=== PATIENT | female | born 1995 | race Caucasian/White ===

== ENCOUNTER → 2018-01-01 | Emergency (ER) | payer OTHER ==
[~2018-01-01] VITALS: Ht 154.9 cm; Wt 47.6 kg
[~2018-01-01] MED LIST: FOLIC ACID0.4 MG; PNV-FERROUS FU1 EACH
== END | disposition home or self-care (01) ==
LOC: ER 10:15
DX: O20.0 Threatened abortion (principal); Z34.81 Encounter for supervision of other normal pregnancy, first trimester

== ENCOUNTER → 2018-01-07 | Emergency (ER) | payer OTHER ==
[~2018-01-07] VITALS: Ht 154.9 cm; Wt 47.6 kg
== END | disposition left against medical advice (07) ==
LOC: ER 10:58
DX: Z53.20 Procedure and treatment not carried out because of patient's decision for unspecified reasons (principal)

== ENCOUNTER 2018-01-09 12:21 | Emergency (ER) | payer OTHER ==
[~2018-01-09] VITALS: Ht 154.9 cm; Wt 49.0 kg
== END 2018-01-09 20:09 | disposition home or self-care (01) ==
LOC: ER 12:21
DX: O21.0 Mild hyperemesis gravidarum (principal); O98.511 Other viral diseases complicating pregnancy, first trimester; B34.9 Viral infection, unspecified; Z34.81 Encounter for supervision of other normal pregnancy, first trimester

== ENCOUNTER 2018-03-27 18:59 | Emergency (ER) | payer OTHER ==
[~2018-03-27] VITALS: Ht 162.6 cm; Wt 59.0 kg
== END 2018-03-27 20:07 | disposition home or self-care (01) ==
LOC: ER 18:59
DX: J06.9 Acute upper respiratory infection, unspecified (principal)

== ENCOUNTER 2018-06-26 20:19 | Outpatient (CLI) | payer OTHER | END 2018-06-26 21:21 | disposition home or self-care (01) | LOC: OBS/DEL 20:19 | DX: O26.893 Other specified pregnancy related conditions, third trimester (principal); R10.2 Pelvic and perineal pain; Z34.83 Encounter for supervision of other normal pregnancy, third trimester ==

== ENCOUNTER 2018-07-23 16:20 | Inpatient (IN) | payer OTHER ==
[~2018-07-23] VITALS: Ht 154.9 cm; Wt 151.0 kg
== END 2018-07-26 09:55 | disposition home or self-care (01) | DRG 833 ==
LOC: LDR 16:20 → OB/GYN 07-25 15:58
PROC: 4A1HXCZ Monitoring of Products of Conception, Cardiac Rate, External Approach (ICD-10-PCS; principal; 2018-07-23)
PROC: BY4FZZZ Ultrasonography of Third Trimester, Single Fetus (ICD-10-PCS; 2018-07-23)
PROC: BU4CZZZ Ultrasonography of Uterus and Ovaries (ICD-10-PCS; 2018-07-23)
DX: O60.03 Preterm labor without delivery, third trimester (principal); O34.211 Maternal care for low transverse scar from previous cesarean delivery; Z34.03 Encounter for supervision of normal first pregnancy, third trimester

== ENCOUNTER 2018-08-09 16:26 | Inpatient (IN) | payer OTHER ==
[~2018-08-09] VITALS: Ht 154.9 cm; Wt 71.7 kg
== END 2018-08-12 10:42 | disposition home or self-care (01) | DRG 788 ==
LOC: LDR 16:26 → OB/GYN 20:39 → RECOVERY 08-19 17:00
PROVIDERS: Obstetrics & Gynecology
PROC: 4A1HXCZ Monitoring of Products of Conception, Cardiac Rate, External Approach (ICD-10-PCS; 2018-08-09)
PROC: 10D00Z1 Extraction of Products of Conception, Low, Open Approach (ICD-10-PCS; principal; 2018-08-09 16:00)
DX: O82 Encounter for cesarean delivery without indication (principal); Z3A.37 37 weeks gestation of pregnancy; Z37.0 Single live birth

== ENCOUNTER 2021-06-22 10:07 | Emergency (ER) | payer OTHER ==
[~2021-06-22] VITALS: Ht 205.7 cm; Wt 54.9 kg
[2021-06-22] MEDS ORDERED: FOLIC ACID0.4 MG PO (10:19)
== END 2021-06-22 17:17 ==
LOC: ER 10:07
DX: O20.8 Other hemorrhage in early pregnancy (principal)

== ENCOUNTER → 2021-06-24 08:11 | Outpatient (CLI) | payer OTHER ==
[~2021-06-24 08:11] MED LIST changes: +FOLIC ACID0.4 MG PO
== END | disposition home or self-care (01) ==
LOC: LAB 08:11
PROVIDERS: ATTEND General Practice
DX: O00.00 Abdominal pregnancy without intrauterine pregnancy (principal)

== ENCOUNTER 2021-08-01 17:06 | Emergency (ER) | payer OTHER ==
[~2021-08-01] VITALS: Ht 154.9 cm; Wt 58.5 kg
== END 2021-08-01 21:33 | disposition home or self-care (01) ==
LOC: ER 17:06
DX: O21.9 Vomiting of pregnancy, unspecified (principal); R10.2 Pelvic and perineal pain; Z3A.00 Weeks of gestation of pregnancy not specified

== ENCOUNTER 2021-11-16 11:14 | Emergency (ER) | payer OTHER ==
[~2021-11-16] VITALS: Ht 154.9 cm; Wt 55.3 kg
== END 2021-11-16 17:33 | disposition home or self-care (01) ==
LOC: ER 11:14
DX: O21.0 Mild hyperemesis gravidarum (principal); Z3A.00 Weeks of gestation of pregnancy not specified

== ENCOUNTER 2022-06-07 11:35 | Outpatient (CLI) | payer OTHER | END 2022-06-07 19:35 | disposition home or self-care (01) | LOC: OBS/DEL 11:35 | PROVIDERS: ATTEND Specialist | DX: O26.893 Other specified pregnancy related conditions, third trimester (principal); Z3A.34 34 weeks gestation of pregnancy ==

== ENCOUNTER 2022-06-14 10:03 | Inpatient (IN) | payer OTHER ==
[~2022-06-14] VITALS: Ht 154.9 cm; Wt 67.6 kg
== END 2022-06-17 15:18 | disposition home or self-care (01) | DRG 783 ==
LOC: OB/GYN 10:03 → LDR 10:03 → OB/GYN 18:48
PROVIDERS: ADMIT Specialist; ATTEND Specialist
PROC: 0UB70ZZ Excision of Bilateral Fallopian Tubes, Open Approach (ICD-10-PCS; 2022-06-14)
PROC: 4A1HXCZ Monitoring of Products of Conception, Cardiac Rate, External Approach (ICD-10-PCS; 2022-06-14)
PROC: 10D00Z1 Extraction of Products of Conception, Low, Open Approach (ICD-10-PCS; principal; 2022-06-14 15:00)
DX: O34.211 Maternal care for low transverse scar from previous cesarean delivery (principal); O60.14X0 Preterm labor third trimester with preterm delivery third trimester, not applicable or unspecified; Z3A.36 36 weeks gestation of pregnancy; Z37.0 Single live birth; Z30.2 Encounter for sterilization; Z20.822 Contact with and (suspected) exposure to COVID-19

== ENCOUNTER 2022-06-21 08:55 | Emergency (ER) | payer OTHER ==
[~2022-06-21] VITALS: Ht 154.9 cm; Wt 63.5 kg
[2022-06-21] MEDS ORDERED: ZITHROMAX200 MG PO (11:22)
== END 2022-06-21 11:28 | disposition home or self-care (01) ==
LOC: ER 08:55
DX: K52.9 Noninfective gastroenteritis and colitis, unspecified (principal); A49.3 Mycoplasma infection, unspecified site; Z20.822 Contact with and (suspected) exposure to COVID-19